=== PATIENT | female | born 1935 | race Caucasian/White ===

== ENCOUNTER 2017-08-02 15:56 | Inpatient (IN) | payer OTHER, BC ==
[~2017-08-02] VITALS: Ht 177.8 cm; Wt 114.3 kg
--- NOTE | ~2017-08-02 | 2DMMODE ---
[address] [place] [address] 2 D/M-MODE ECHOCARDIOGRAM Name: ROSCOE ESPINOZA Kimberli Room #: 435-P [facility] IN ..#: [id number] Admission: 08/02/17 Attend Phys: Kaz Skinner, Discharge: Date of : 31 Date of Service: 08/03/17 1250 Report #: [id number] THIS REPORT FOR: //name// ADDENDUM APPROVED REPORT Study performed: 08/03/2017 11:50:47 EXAM: Comprehensive 2D, Doppler, and color-flow Echocardiogram Patient Location: Echo lab Room #: [facility] Status: routine BSA: 2.30 HR: 68 bpm BP: 134/82 mmHg Other Information Study Quality: Good Indications CVA/TIA Diabetes Hypertension/HDD AVR in November 2016, patient unsure type of valve Echo Enhancing Agent Indication: Rule out Shunt Agent(s) / Amount(s) Used: Agitated Saline 6 cc 2D Dimensions RVDd: 34.68 mm LVEF(%): 44.22 (>50%) IVSd: 14.46 (7-11mm) LVOT Diam: 19.14 (18-24mm) LVDd: 57.98 mm PWd: 14.58 (7-11mm) Ascending Ao: 35.85 (22-36mm) LVDs: 45.08 (25-40mm) Aortic Root: 31.99 mm IVC: 25.00 mm Light's LVEF: 44.22 % Volumes Left Atrial Volume (Systole) Single Plane 4CH: 110.81 mL Single Plane 2CH: 195.59 mL LA ESV Index: 69.00 mL/m2 Aortic Valve AoV Peak Neymar.: 2.55 m/s AO Peak Gr.: 26.07 mmHg LVOT Max P.39 mmHg [place] [address] 2 D/M-MODE ECHOCARDIOGRAM Name: ROSCOE ESPINOZA Room #: 435-P [facility] IN .R.#: [id number] Admission: 08/02/17 Attend Phys: Kaz Skinner, Discharge: Date of : 31 Date of Service: 08/03/17 1250 Report #: [id number] AO Mean Gr.: 12.44 mmHg LVOT Mean P.38 mmHg AO V2 Mean: 1.58 m/s LVOT Max V: 1.26 m/s AO V2 VTI: 50.34 cm LVOT Mean V: 0.84 m/s KULWINDER (VTI): 1.53 cm2 LVOT V1 VTI: 26.77 cm KULWINDER Vmax: 1.42 cm2 SV (LVOT): 76.98 mL Mitral Valve E/A Ratio: 2.4 MV Decel. Time: 176.59 ms MV E Max Neymar.: 1.64 m/s MV A Neymar.: 0.68 m/s MV PHT: 51.21 ms IVRT: 121.11 ms Pulmonary Valve PV Peak Neymar.: 1.29 m/s PV Peak Gr.: 6.68 mmHg Pulmonary Vein P Vein S: 0.32 m/s P Vein A: 0.17 m/s P Vein D: 0.60 m/s P Vein A Dur.: 117.6 msec P Vein S/D Ratio: 0.53 Tricuspid Valve TR Peak Neymar.: 3.49 m/s RAP Estimate: 10.00 mmHg TR Peak Gr.: 48.73 mmHg PA Pressure: 59.00 mmHg Left Ventricle Left ventricle is at the upper limits of normal. Mild concentric left ventricular hypertrophy. Left ventricular systolic function is moderately decreased. LVEF is 40%. Transmitral Doppler flow pattern suggests restrictive physiology. Right Ventricle Right ventricle is at the upper limits of normal. Right ventricular systolic function appears grossly normal. Atria Left atrium is severely dilated. No shunting by contrast bubble injection. Right atrium is severely dilated. Aortic Valve Prosthetic aortic valve is grossly normal in appearance. Max pressure gradient measures 26 mmHg and mean pressure gradient measures 12 mmHg. No aortic regurgitation is present. [address] [place] [address] 2 D/M-MODE ECHOCARDIOGRAM Name: ROSCOE ESPINOZA Room #: 435-P [facility] IN M.R.#: [id number] Admission: 08/02/17 Attend Phys: Kaz Skinner, Discharge: Date of : 31 Date of Service: 08/03/17 1250 Report #: [id number] Mitral Valve Moderate mitral annular calcification, possible mitral annuloplasty ring Moderately severe mitral regurgitation. No evidence of mitral valve stenosis. Tricuspid Valve The tricuspid valve is normal in structure. Moderate tricuspid regurgitation. PAP is estimated at 55 mmHg. Pulmonic Valve The pulmonary valve is normal in structure. Mild pulmonic regurgitation. Great Vessels The aortic root is normal in size. IVC is dilated and collapses >50% with inspiration. Pericardium There is no pericardial effusion. <Conclusion> Left ventricular systolic function is moderately decreased. LVEF is 40%. Both atria are severely dilated. No shunt by contrast bubble injection Prosthetic aortic valve is normal in appearance. Max pressure gradient measures 26 mmHg and mean pressure gradient measures 12 mmHg. No aortic regurgitation is present. Moderate mitral annular calcification, possible mitral annuloplasty ring. Moderately severe mitral regurgitation. Moderate tricuspid regurgitation. Pulmonary artery pressure estimated at 55 mmHg. There is no pericardial effusion. <ELECTRONICALLY SIGNED> By: Peter Merchant MD, FACC 08/03/17 1250 1250 1250 Peter Merchant MD, FACC /INF
--- NOTE | ~2017-08-02 | HC ---
[facility] [address] CONSULTATION Name: ROSCOE ESPINOZA Room #: 435-P [facility] IN ..#: [id number] Admission: 08/02/17 Attend Phys: Kaz Skinner DO Discharge: 08/04/17 Date of : 31 Report #: [id number] THIS REPORT FOR: //name// CC: Khalif Josephosman Skinner DATE OF SERVICE: 08/03/2017 HISTORY OF PRESENT ILLNESS: This is an 81-year-old female patient who was evaluated by me because she had one episode of speech difficulty as well as difficulty with writing. It came spontaneously. There was no head trauma involved with it. It was moderately severe. It recovered by itself. There was no headache associated with this. She never had this kind of episode before. REVIEW OF SYSTEMS: Positive for diabetes and hypertension, it is not clear what her blood sugar or blood pressure was during this episode. she went to the emergency room there by herself, but then came here in an ambulance. Review of systems is positive for being under a lot of stress, which she indicates was the cause of her symptoms. She does have multiple other problems. She indicates she had a valve replacement. She also has a history of atrial fibrillation. She is on anticoagulation and she manages her anticoagulation through her family doctor. She does have diabetes, anxiety, and hypothyroidism. She does have macular degeneration and she gets injections for the macular degeneration. She has a history of cataract surgery in the past. This was her relevant 14-point review of system. She feels back to her baseline now. PAST MEDICAL HISTORY: Negative for stroke, but is positive for cardiac problem. FAMILY HISTORY: Negative for early age stroke. SOCIAL HISTORY: She does not smoke or drink any alcohol. PHYSICAL EXAMINATION: The patient's examinations indicate she is alert. She is responsive. She is oriented. She believes her speech, concentration, fund of knowledge and memory is at her baseline. Cranial nerve examination 2-12 is unremarkable. She has symmetrical strength, sensation, reflexes and tones in all 4 extremities. Reflexes are diminished in the lower extremities as expected with diabetes. I tried to look at the fundus, I do not think there is any papilledema, she has no cerebellar sign. She is a well-developed individual who does not have any dysmorphic features of eyes, ears, and face. Her vision and hearing looks adequate. She has no thyroid mass. There is no carotid bruit. Heart is somewhat irregular, but she has a history of atrial fibrillation and the valve replacement. No respiratory difficulty or rhonchi was noticed. Blood pressure is 134/82, respiration is 18, pulse is 78, and temperature is 98.2. [facility] [address] [place] [address] CONSULTATION Name: ROSCOE ESPINOZA Kimberli Room #: 435-P [facility] IN M.R.#: [id number] Admission: 08/02/17 Attend Phys: Kaz Skinner DO Discharge: 08/04/17 Date of : 31 Report #: [id number] LAB: Indicate anemia with a hemoglobin of 9.2. Her sed rate was normal. She also has renal failure and her GFR is 24. She did not have any imaging studies here, but as I understand from her, she did have imaging studies in the outside hospital. IMPRESSION: This patient's presentation is suggestive of transient ischemic attack. It is not very classical for that. It occurred when the patient is fully anticoagulated. She also has multiple other problems like renal failure. Her LDL is only 49. RECOMMENDATION: I discussed the diagnosis with the patient. I suggested some further workup. We will go ahead and do an MRI, MRA, echocardiogram, and EEG in this patient. If that workup is negative, neurologically I do not think anything else needs to be done and I will suggest stress management as an outpatient. Until the workup shows some abnormality, I do not think any change in the treatment is required in this patient. Thank you very much for this referral and if you have any question, please feel free to contact me. <ELECTRONICALLY SIGNED> By: Kaden Galicia MD 08/04/172000 1129 1346 Kaden Galicia MD /nt
--- NOTE | ~2017-08-02 | EEG ---
[facility] [place] [address] ELECTROENCEPHALOGRAM Name: ROSCOE ESPINOZA Room #: 435-P [facility] IN M.R.#: [id number] Admission: 08/02/17 Attend Phys: Kaz Skinner DO Discharge: 08/04/17 Date of : 31 Report #: [id number] THIS REPORT FOR: //name// CC: Khalif Josephosman Skinner DATE OF SERVICE: 08/03/2017 This patient is being evaluated for the possibility of TIA. EEG was done by placing the electrodes by standard 10/20 system of electrode placement. Both referential and sequential montages were used for recording. Background activity in this patient's EEG is about 11 Hz and 40 microvolts. This is a symmetrical activity. The patient became drowsy and that is associated with bilateral slowing. Photic stimulation is unremarkable. Throughout the record, no active epileptiform activity was noticed. IMPRESSION: This patient's EEG is unremarkable. Thank you very much for this referral. <ELECTRONICALLY SIGNED> By: Kaden Galicia MD 08/04/172001 41 18 Kaden Galicia MD /nt
[2017-08-02 18:10] VITALS: BP 182/82
[2017-08-02 18:26] LABS: ALBUMIN 3.7 g/dL (3.4-5.0); CALCIUM 8.6 mg/dL (8.5-10.1); POTASSIUM 4.4 mmol/L (3.5-5.1); TOTAL BILIRUBIN 0.5 mg/dL (<0.1-1.0); TOTAL PROTEIN 6.6 g/dL (6.4-8.2)
[2017-08-02] MEDS ORDERED: CRESTOR5 MG PO ×2 (18:56)
[2017-08-02] MEDS ORDERED: XANAX 0.5 MG0.5 MG PO ×2 (18:57)
[2017-08-02] MEDS ORDERED: COUMADIN 5 MG TA5 M1 PO ×2 (18:58)
[2017-08-02] MEDS ORDERED: ASPIR 8181 MG PO ×2 (18:59)
[2017-08-02] MEDS ORDERED: BUMETANIDE 1 MG1 M1 PO ×2 (18:59)
[2017-08-02] MEDS ORDERED: CARVEDILOL3.125 MG PO ×2 (19:00)
[2017-08-02 19:01] LABS: TSH 3.033 uIU/mL (0.358-3.740)
[2017-08-02] MEDS ORDERED: ANTIVERT25 MG PO ×2 (19:01)
[2017-08-02] MEDS ORDERED: RAYALDEE30 MCG PO ×2 (19:02)
[2017-08-02] MEDS ORDERED: DIOVAN 80 MG TA80 M1 PO ×2 (19:03)
[2017-08-02 20:19] VITALS: BP 174/95
[2017-08-03 00:37] LABS: URINE BILIRUBIN NEGATIVE (Negative); URINE BLOOD 2+ (Negative); URINE CLARITY CLEAR; URINE COLOR YELLOW; URINE GLUCOSE-RANDOM* TRACE (Negative); URINE KETONES NEGATIVE (Negative); URINE LEUKOCYTES-REFLEX NEGATIVE (Negative); URINE NITRITE-REFLEX NEGATIVE (Negative); URINE PROTEIN (DIPSTICK) 3+ (Negative); URINE SPECIFIC GRAVITY 1.025 (1.005-1.035); URINE UROBILINOGEN 0.2 E.U./dl (0.2-1.0)
[2017-08-03 00:52] LABS: BACTERIA-REFLEX 1-9 Few /HPF (None Seen); CASTS None Seen /LPF (None Seen); CRYSTALS None Seen /LPF (None Seen); MUCUS None Seen strn/LPF (None Seen); SQUAMOUS 0-3 Few /LPF (0-3); URINE RBC 3-10 Few /HPF (0-2); URINE WBC-REFLEX 0-5 Rare /HPF (0-5)
[2017-08-03 03:54] LABS: ABSOLUTE NEUTROPHILS 2.8 thou/uL (1.4-8.2); BASOPHILS 0.6 % (0.0-2.0); HEMATOCRIT 26.4 % (37.0-47.0); HEMOGLOBIN 9.2 gm/dL (12.0-15.0); MCHC 34.8 g/dL (28.0-37.0); MCV 94.8 fL (80.0-100.0); MONOCYTES 9.4 % (1.0-8.0); PLATELET COUNT 149 thou/uL (150-400); RBC 2.78 mil/uL (4.20-5.00); WBC 6.4 thou/uL (4.0-11.0)
[2017-08-03 03:59] LABS: INR 2.4; PROTIME 24.7 Seconds (9.3-11.4)
[2017-08-03 05:06] VITALS: BP 152/71
[2017-08-03 05:32] LABS: ALBUMIN 2.8 g/dL (3.4-5.0); ANION GAP 7 mmol/L (7-16); BUN 35 mg/dL (7-18); CALCIUM 8.4 mg/dL (8.5-10.1); CHLORIDE 107 mmol/L (98-107); CHOLESTEROL 126 mg/dL (<200); CO2 25 mmol/L (21-32); GLUCOSE 98 mg/dL (74-106); HDL CHOLESTEROL 51 mg/dL (>40); LDL CHOLESTEROL 49 mg/dL (<100); MAGNESIUM 1.5 mg/dL (1.8-2.4); POTASSIUM 4.1 mmol/L (3.5-5.1); SGOT 16 U/L (15-37); SGPT 16 U/L (30-65); SODIUM 139 mmol/L (136-145); TC:HDL 2.5 Ratio (Not establshd); TOTAL BILIRUBIN 0.6 mg/dL (<0.1-1.0); TOTAL PROTEIN 5.6 g/dL (6.4-8.2); TRIGLYCERIDE 131 mg/dL (<150); VLDL 26 mg/dL (<40)
[2017-08-03 05:35] LABS: SERUM ASSESSMENT Clear
[2017-08-03 08:07] LABS: GLYCOHEMOGLOBIN (HGB A1C) 6.2 % (4.8-5.6)
[2017-08-03 10:14] VITALS: BP 134/82
[2017-08-03 15:18] VITALS: BP 172/74
[2017-08-03 19:28] VITALS: BP 138/44
[2017-08-04 05:10] VITALS: BP 151/52
[2017-08-04 07:55] VITALS: BP 170/85
[2017-08-04 09:23] VITALS: BP 170/85
[2017-08-04 09:43] VITALS: BP 170/85
[2017-08-05] MEDS ORDERED: MAG-OXIDE400 MG PO ×3 (23:19→23:42)
== END 2017-08-04 10:26 | disposition home or self-care (01) | DRG 69 ==
LOC: 4S 15:56 → ENTRNSPT 08-04 10:19 → 4S 08-04 10:26
PROVIDERS: Nurse Practitioner
DX: G45.9 Transient cerebral ischemic attack, unspecified (principal); E43 Unspecified severe protein-calorie malnutrition; I12.0 Hypertensive chronic kidney disease with stage 5 chronic kidney disease or end stage renal disease; N18.9 Chronic kidney disease, unspecified; K46.9 Unspecified abdominal hernia without obstruction or gangrene; E03.9 Hypothyroidism, unspecified; E11.42 Type 2 diabetes mellitus with diabetic polyneuropathy; E11.22 Type 2 diabetes mellitus with diabetic chronic kidney disease; E78.5 Hyperlipidemia, unspecified; F41.9 Anxiety disorder, unspecified; I48.91 Unspecified atrial fibrillation; Z88.0 Allergy status to penicillin; Z88.8 Allergy status to other drugs, medicaments and biological substances; Z88.1 Allergy status to other antibiotic agents; Z91.041 Radiographic dye allergy status; Z90.49 Acquired absence of other specified parts of digestive tract; Z98.49 Cataract extraction status, unspecified eye; Z82.5 Family history of asthma and other chronic lower respiratory diseases; Z83.3 Family history of diabetes mellitus; Z82.49 Family history of ischemic heart disease and other diseases of the circulatory system; Z79.01 Long term (current) use of anticoagulants; Z79.82 Long term (current) use of aspirin; Z79.899 Other long term (current) drug therapy
CPT/HCPCS: 10102

== ENCOUNTER 2017-08-05 20:55 | Emergency (ER) | payer OTHER, BC ==
[~2017-08-05] VITALS: Ht 177.8 cm; Wt 114.3 kg
--- NOTE | ~2017-08-05 | EKG ---
[address] [address] ELECTROCARDIOGRAM REPORT Name: ROSCOE ESPINOZA [id number] Admission: 08/05/17 Attend Phys: Discharge: 08/05/17 Date of : 31 Report #: [id number] THIS REPORT FOR: //name// [facility] ED Test Date: 2017-08-05 Test Time: 20:59:06 Pat Name: ROSCOE ESPINOZA Department: Room: Gender: F Rn Emergency: Zaida SUÁREZ : 1935 Requested By: Keshawn Koroma Order Number: [id number] MD: Lm Persaud Measurements Intervals [place] Rate: 82 P: [place]: QRS: -61 QRSD: 150 T: 52 QT: 428 QTc: 500 Interpretive Statements Atrial fibrillation Left bundle branch block No previous ECG available for comparison Electronically Signed On 08-06-2017 9:53:19 RISK MANAGEMENT INTERN by Lm Persadu [email or web address] <ELECTRONICALLY SIGNED> By: Lm Persaud MD 08/06/17 0953 2059 Lm Persaud MD /EPI
[~2017-08-05 20:55] MED LIST: ANTIVERT25 MG PO; ASPIR 8181 MG PO; BUMETANIDE 1 MG1 M1 PO; CARVEDILOL3.125 MG PO; COUMADIN 5 MG TA5 M1 PO; CRESTOR5 MG PO; DIOVAN 80 MG TA80 M1 PO; RAYALDEE30 MCG PO; XANAX 0.5 MG0.5 MG PO
[2017-08-05 21:25] LABS: ABSOLUTE NEUTROPHILS 4.2 thou/uL (1.4-8.2); BASOPHILS 0.9 % (0.0-2.0); EOSINOPHILS 3.4 % (0.0-3.0); HEMATOCRIT 33.3 % (37.0-47.0); LYMPHOCYTES 32.3 % (24.0-44.0); MCH 32.6 pg (26.0-34.0); MCHC 34.5 g/dL (28.0-37.0); MCV 94.7 fL (80.0-100.0); PLATELET COUNT 184 thou/uL (150-400); POLYS 54.4 % (36.0-66.0); RBC 3.52 mil/uL (4.20-5.00); RDW 13.3 % (10.5-14.5); WBC 7.7 thou/uL (4.0-11.0)
[2017-08-05 21:26] LABS: HEMOGLOBIN 11.5 gm/dL (12.0-15.0)
[2017-08-05 21:35] LABS: ANION GAP 9 mmol/L (7-16); BUN 48 mg/dL (7-18); CALCIUM 9.3 mg/dL (8.5-10.1); CHLORIDE 105 mmol/L (98-107); CO2 28 mmol/L (21-32); CREATININE 2.7 mg/dL (0.6-1.0); GLUCOSE 170 mg/dL (74-106); POTASSIUM 4.5 mmol/L (3.5-5.1); SODIUM 142 mmol/L (136-145)
[2017-08-05 21:39] LABS: APTT 32.9 Seconds (24.5-32.8); INR 1.9; PROTIME 19.5 Seconds (9.3-11.4)
[2017-08-05 21:42] LABS: ALBUMIN 3.3 g/dL (3.4-5.0); MAGNESIUM 1.5 mg/dL (1.8-2.4); SGOT 20 U/L (15-37); SGPT 18 U/L (30-65); TOTAL BILIRUBIN 0.6 mg/dL (<0.1-1.0); TOTAL PROTEIN 6.7 g/dL (6.4-8.2); TROPONIN-I < 0.04 ng/mL (<0.06)
[2017-08-05] MEDS ORDERED: MAG-OXIDE400 MG PO ×3 (23:19→23:42)
[2017-08-05 23:41] VITALS: BP 153/78
== END 2017-08-05 23:43 | disposition home or self-care (01) ==
LOC: ER 20:55
PROVIDERS: Emergency Medicine
DX: R41.3 Other amnesia (principal); F41.9 Anxiety disorder, unspecified; F43.0 Acute stress reaction; E83.42 Hypomagnesemia; G45.9 Transient cerebral ischemic attack, unspecified; I12.9 Hypertensive chronic kidney disease with stage 1 through stage 4 chronic kidney disease, or unspecified chronic kidney disease; N18.9 Chronic kidney disease, unspecified; E11.22 Type 2 diabetes mellitus with diabetic chronic kidney disease; E78.5 Hyperlipidemia, unspecified; E05.90 Thyrotoxicosis, unspecified without thyrotoxic crisis or storm; I48.91 Unspecified atrial fibrillation; Z90.49 Acquired absence of other specified parts of digestive tract; Z88.6 Allergy status to analgesic agent; Z88.8 Allergy status to other drugs, medicaments and biological substances; Z91.041 Radiographic dye allergy status; Z88.0 Allergy status to penicillin